=== PATIENT | female | born 1965 | race Caucasian/White ===

== ENCOUNTER 2016-11-12 19:03 | Emergency (ER) | payer SELFPAY ==
--- NOTE | 2016-11-12 22:02 | DIAGNOSTIC IMAGING REPORT ---
PROCEDURE: XR CHEST 2 VIEW INDICATION: SWOLLEN ARE TO L MID BACK AREA TECHNIQUE: PA and lateral views. COMPARISON: None. FINDINGS: Lungs are clear. Heart and mediastinum are normal. Moderate levoscoliosis of the thoracolumbar spine. IMPRESSION: 1. Moderate levoscoliosis of the thoracolumbar spine. 2. Otherwise negative chest.
--- NOTE | 2016-11-12 22:05 | DIAGNOSTIC IMAGING REPORT ---
PROCEDURE: XR THORACIC SPINE 3 VIEWS INDICATION: MID BACK PAIN TECHNIQUE: Three views. COMPARISON: None. FINDINGS: Moderate to severe levoscoliosis of the thoracolumbar spine (50 degrees, centered at L2). Osseous structures and disc spaces are otherwise normal. No evidence of an acute process or fracture. IMPRESSION: 1. Moderate to severe levoscoliosis of the thoracolumbar spine (50 degrees). 2. Otherwise negative thoracic spine.
--- NOTE | 2016-11-12 22:08 | DIAGNOSTIC IMAGING REPORT ---
PROCEDURE: XR LUMBAR SPINE 2 OR 3 VIEWS INDICATION: LOWER BACK PAIN TECHNIQUE: Three upright views. COMPARISON: None. FINDINGS: There is moderate to severe levoscoliosis of the thoracolumbar spine (40 degrees). changes of the thoracic No evidence of an acute process or fracture. IMPRESSION: 1. Moderate to severe levoscoliosis of the thoracolumbar spine (40 degrees in upright position). 2. Mild degenerate changes of the lumbar spine.
--- NOTE | 2016-11-12 22:22 | ED CLINICAL REPORT ---
Clinical Report - Physicians/Mid Levels [facility] [address] [place] [address] 11/12/2016 19:05 Patient: DOMINIC JASSO Time Seen: 19:15; upon arrival, initial patient contact, initial documentation, patient care assumed. Arrived- By private vehicle. Historian- patient and sister. HISTORY OF PRESENT ILLNESS Chief Complaint: VAGINAL BLEEDING. This started today and still present. It was abrupt in onset and has been constant. The symptoms are described as moderate. Modifying factors. Not worsened by anything. Not relieved by anything. The patient has had constant, crampy suprapubic pelvic pain, described as "pain". She has had moderate, constant lower back pain (says her back is crooked and started a few mos ago, denies any injury or trauma). She has had abnormal bleeding described as heavier than normal period. No abdominal pain, vaginal pain, flank pain, irregular periods or vaginal discharge. No vaginal itching, pain with urination, urinary frequency, urgency of urination or hematuria. She missed her last period. She has not had long-standing amenorrhea. She is not possibly . No history of recently irregular periods or chronically irregular periods. Not sexually active. Denies current . Similar symptoms previously: None. Recent medical care: Not recently seen/assessed. REVIEW OF SYSTEMS No nausea, vomiting, diarrhea, fever or difficulty breathing. No chest pain. All systems otherwise negative, except as recorded above. PAST HISTORY See nurses notes. ( PROBLEMS: Atypical Chest Pain. Substance Abuse. Abscess. --19:25 Annika Reyes R.N. ADDITIONAL SURGERIES: . --19:25 Annika Reyes RJake.). SOCIAL HISTORY Light tobacco smoker. History of heavy drug use: heroin. Recently used drugs today. No alcohol use. No recent travel. Is a local resident. FAMILY HISTORY Negative. ADDITIONAL NOTES The nursing notes have been reviewed with agreement regarding the chief complaint, HPI, ROS, PMH and patient medications and allergies. PHYSICAL EXAM Vital Signs: 11/12/2016 19:23 BP: 132/88. HR: 115. RR: 20. O2 saturation: 97%. Temp: 97.9 F. Pain level now: 10/02. Have been reviewed as abnormal and appear to be correct. Blood pressure normal. Tachycardic. Respiratory rate normal. Temperature normal. Oxygen saturation normal. Appearance: Alert. Oriented X3. No acute distress. HEENT: Normal external inspection. ENT: Pharynx normal. Neck: Neck supple. CVS: Tachycardia (ventricular rate = 110). Heart sounds abnormal. Respiratory: No respiratory distress. Breath sounds normal. Chest nontender. Abdomen: Soft and nontender. Bowel sounds normal. No organomegaly. No mass. Back: Normal external inspection. (curvature of spine noted that resembles sciolosis). : External inspection normal. Speculum exam abnormal. Moderate vaginal bleeding, consisting of bright red blood, via the cervical os. No vaginal discharge. Cervical os closed. No cervicitis. No herpes-like lesions. Bimanual exam normal. (vasc tech mehul george). Skin: Skin warm and dry. Normal skin color. No rash. Normal skin turgor. Extremities: Extremities nontender. No lower extremity edema. Neuro: Oriented X 3. Mood/affect normal. No motor deficit. No sensory deficit. LABS, X-RAYS, AND EKG X-Rays: T-Spine series. LS spine series negative. T-Spine X-rays: (IMPRESSION: 1. Moderate to severe levoscoliosis of the thoracolumbar spine (50 degrees). 2. Otherwise negative thoracic spine. Electronically Final signed by:Delvis Alonzo MD 11/12/2016 9:59:12 PM). The X-rays were interpreted by the radiologist and contemporaneously by me. Interpretation time: 22:14. LS-Spine X-rays: (IMPRESSION: 1. Moderate to severe levoscoliosis of the thoracolumbar spine (40 degrees in upright position). 2. Mild degenerate changes of the lumbar spine. Electronically Final signed by:Delvis Alonzo MD 11/12/2016 10:02:19 PM). The X-rays were interpreted by the radiologist and contemporaneously by me. Chest X-ray: Normal Chest X-Ray. (IMPRESSION: 1. Moderate levoscoliosis of the thoracolumbar spine. 2. Otherwise negative chest. Electronically Final signed by:Delvis Alonzo MD 11/12/2016 9:56:04 PM). The X-rays were interpreted by the radiologist and contemporaneously by me. Interpretation time: 22:02. Laboratory Tests: Serum Qualitative: (LILIAM: 11/12/2016 20:15) ( [facility] 11/12/2016 20:44) Final results Test Result Flag Units (Reference) , SERUM NEGATIVE CBC w Diff: (LILIAM: 11/12/2016 20:15) ( [facility] 11/12/2016 20:29) Final results Test Result Flag Units (Reference) WHITE BLOOD COUNT 5.1 K/uL (4.5-11.5) RED BLOOD COUNT 4.56 M/uL (4.00-5.20) HEMOGLOBIN 12.8 gm/dL (12.0-16.0) HEMATOCRIT 38.9 % (36.0-46.0) MEAN CELL VOLUME 85 fL (80-100) MEAN CORPUSCULAR HGB 28 pg (26-34) MEAN CORPUSCULAR HGB CONC 33 g/dL (31-37) RED CELL DISTRIBUTION WIDTH 18.4 H % (11.6-14.8) PLATELET COUNT 224 K/uL (150-400) NEUTROPHIL % 60.9 % (50-75) LYMPH % 25.3 % (25-40) MONO % 12.3 % (3-14) EOSINOPHIL % 1.1 % (0-4) BASOPHIL % 0.4 % (0-2) CMP: (LILIAM: 11/12/2016 20:15) ( [facility] 11/12/2016 20:40) Final results Test Result Flag Units (Reference) GLUCOSE 99 mg/dL (70-110) BUN 15 mg/dL (7-18) CREATININE 0.9 mg/dL (0.6-1.3) Estimated GFR >60 mL/min Estimated GFR- >60 mL/min Note: Persistent reduction over 3 months in eGFR<60 mL/min/1.73 m2 defines CKD. Patients with eGFR values>=60 mL/min/1.73 m2 may also have CKD if evidence ofpersistent proteinuria. Additional information may be foundat [email or web address].org. SODIUM 142 mmol/L (136-145) POTASSIUM 4.2 mmol/L (3.5-5.1) CHLORIDE 108 H mmol/L (98-107) CARBON DIOXIDE 28 mmol/L (21-32) CALCIUM 9.1 mg/dL (8.5-10.1) TOTAL PROTEIN 7.1 g/dL (6.4-8.2) ALBUMIN 3.6 g/dL (3.3-5.0) BILIRUBIN, TOTAL 0.2 mg/dL (0.0-1.0) ALKALINE PHOSPHATASE 95 U/L (46-116) AST (SGOT) 10 L U/L (15-37) ALT (SGPT) 13 U/L (12-78) . PROGRESS AND PROCEDURES Course of Care: pt aware of lab results. Patient and family counseled in person regarding the patient's stable condition, test results and diagnosis. 2215. Differential Diagnosis: I considered vaginitis, vaginal polyps, vaginal lesion, vaginal cancer, vulvar infection, ovarian cysts, polycystic disease of the ovaries, ovarian cancer, endometriosis, uterine fibroids, adenomyosis of the uterus, uterine polyps, uterine hyperplasia, uterine cancer, intrauterine , incomplete , endometritis and dysfunctional uterine bleeding as a possible cause of vaginal bleeding in this patient. This is a partial list of diagnoses considered. (premenopausal). Above considerations are based on history, physical exam, reassessment, laboratory data and X-Ray data. Differential diagnosis was discussed with patient. Disposition: Discharged home in good and improved condition (22:22). Condition: good and stable. CLINICAL IMPRESSION Primary dysmenorrhea (Scoliosis). INSTRUCTIONS Warnings: GENERAL WARNINGS: Return or contact your physician immediately if your condition worsens or changes unexpectedly, if not improving as expected, or if other problems arise. Specifically return if problem worsens. Prescription Medications: Diclofenac 50 mg tablets: Take 1 tablet orally every 8 hours as needed. Dispense thirty (30). No refills. Understanding of the discharge instructions verbalized by patient. Follow-up with: Bri Ch, [facility], , [address] [place] [address], [address], [place] [address]; Christos Pimentel MD, [facility], , [address], [place] [address]; Emilio Santos MD, [facility], , [facility], [address] [facility], [place] [address]; Wojciech Keith MD, [facility], , [facility], [address] [place] [address] [address] [address]; Napoleon Hunter MD, [facility], , [address], [place] [address]; [facility], , [address] [place] [address]; [facility], , [address] [place] [address], [address], [place] [address] Follow up in about two days even if well. Call for an appointment. Summary of care provided to patient. Follow-up with: Gary Stanton MD, Obstetrics/Gynecology, , [facility]'s [facility], [address] [place] [address] Follow up in about two days as needed. Call for an appointment. Summary of care provided to patient. (Electronically signed by Tess Pfeiffer A.R.N.P. 11/12/2016 22:46)
--- NOTE | 2016-11-12 22:22 | ED ORDER SUMMARY ---
..... Patient: DOMINIC JASSO OrderSheet [facility] VisitID: [id number] [place] [address] 51y, F Registration Date/Time: 11/12/2016 ORDER SHEET Weight: 69.3 kg (stated) Allergies: Codeine GENERAL ORDERS: CBC w Diff Urgent (19:35 11/12/2016 HBivens A.R.N.P.) (Ack 19:37 [facility]ager[facility] [employer] Manager) (20:16 DDean R.N.) CMP Urgent (19:35 11/12/2016 HBivens A.R.N.P.) (Ack 19:37 CH[facility] [employer] Manager) (20:16 DDean R.N.) Serum Qualitative Urgent (19:35 11/12/2016 HBivens A.R.N.P.) (Ack 19:37 [facility] [employer] Manager) (20:16 DDean R.N.) Pelvic Exam Setup (19:35 11/12/2016 HBivens A.R.N.P.) (19:50 DDean R.N.) Lumbar Spine 2 or 3V Urgent (19:49 11/12/2016 HBivens A.R.N.P.) (Ack 19:50 [facility] [employer] Manager) (20:43 James) Thoracic Spine 3V Urgent (19:49 11/12/2016 HBivens A.R.N.P.) (Ack 19:50 CH[facility] [employer] Manager) (20:43 James) Chest 2V Urgent (19:49 11/12/2016 HBivens A.R.N.P.) (Ack 19:50 CH[employer] [employer] Manager) (20:43 James) MEDICATION ORDERS: IV FLUIDS: ORDER SHEET NOTES: [Electronically signed by Tess Pfeiffer.R.N.P. (22:46 11/12/2016)] [Electronically signed by Annika Reyes R.N. (22:50 11/12/2016)] [Electronically locked/signed by Annika Reyes R.N. (22:50 11/12/2016)]
--- NOTE | 2016-11-12 22:22 | ED NURSING NOTES ---
Clinical Report - Nurses [facility] [address] [place] [address] 11/12/2016 19:05 Patient: DOMINIC JASSO TRIAGE Triage time 1925. Acuity: LEVEL 3. Chief Complaint: PELVIC PAIN and (in with heavy vag bleeding, also has back pain). --19:28 Annika Reyes R.N. 19:23 11/12/16. BP: 132/88. HR: 115. RR: 20. O2 saturation: 97%. Temp: 97.9 F. Pain level now: 10/02. --19:28 Annika Reyes R.N. Weight: 69.3 kg stated. Height/Length: 63 inches Per Patient. BMI: 27.1. --19:23 Annika Reyes R.N. Medications None. --19:24 Annika Reyes R.N. Allergies Codeine.(rash) --19:24 Annika Reyes R.N. History Arrived by private vehicle. Historian: patient. Accompanied by sister. No primary care physician. Onset. (2 days). She has had abdominal pain. ( skipped a period). SOCIAL HX: Light tobacco smoker (cigarette)- less than 1/2 a pack per day. History of drug use: heroin. No alcohol use. --19:28 Annika Reyes R.N. PROBLEMS: Atypical Chest Pain. Substance Abuse. Abscess. --19:25 Annika Reyes R.N. ADDITIONAL SURGERIES: . --19:25 Annika Reyes R.N. Interventions ID band on patient. To treatment room. --19:28 Annika Reyes R.N. PHYSICAL ASSESSMENT 19:29 11/12/16. Ambulatory to room. Patient gowned. GENERAL / NEURO / PSYCH: Alert. Oriented X 4. RESPIRATORY: Respirations not labored. CVS: Capillary refill less than 2 seconds. GI / : Vaginal bleeding present. SKIN: Skin is warm and dry. --19:29 Annika Reyes R.N. NURSING PROGRESS NOTES 19:25. Patient gowned. Head of bed elevated. Reassurance given. Patient identifiers checked. Call light placed in reach. Side rails up. Bed placed in lowest position. Patient ready for evaluation- chart flagged. --19:28 Annika Reyes R.N. 19:51 11/12/16. PELVIC EXAM: Pelvic exam performed by LAMP SHADE MAKER. Assisted by one nurse. Preparation: pelvic tray; patient placed in lithotomy position. Procedure: speculum and bimanual exam. Moderate amount of vaginal bleeding noted. Status post-procedure: she was stable. Total time of assist / procedure: 15 minutes. --19:51 Annika Reyes R.N. 20:05. Patient ID band checked for patient name and birthdate. Blood samples drawn by lab per protocol ; labeled in presence of the patient and sent to lab: [employer] set. --20:14 Annika Reyes R.N. 20:10. ( sister reported that pt "soaked thru 2 {shayy}pads in less than 15 min" new pads given to pt.). --20:15 Annika Reyes R.N. 20:15 11/12/16. Patient transported to radiology by stretcher with tech. --20:15 Annika Reyes R.N. correction to prior entry -20:10 staff asked to see vag pads, approx 1/3 of pad saturated, 2/3 dry. other pad only 20% involved. --20:36 Annika Reyes R.N. 20:30. Patient returned from radiology by stretcher with tech. --20:34 Annika Reyes R.N. 21:20 11/12/16. BP: 136/72. HR: 80. RR: 18. O2 saturation: 99%. Temp: deferred. Pain level now: 5/10. Additional comments: up to bathroom, steady on feet, pippa well . --22:50 Annika Reyes R.N. DISPOSITION / DISCHARGE 22:30. Condition at departure: improved and stable. No learning barriers present. Discharge instructions provided and reviewed with the patient and family. Reviewed medication(s) (diclofenec). Reviewed referrals (family practice referrals given). Patient and family verbalized understanding. Written instructions provided in [place]. The patient was discharged home and accompanied by family. She left the Emergency Department ambulatory and via private vehicle. Driving (sister). --22:44 Annika Reyes R.N. 22:30 11/12/16. BP: 130/78. HR: 78. RR: 18. O2 saturation: 99%. Temp: deferred. Pain level now: 09/01. --22:44 Annika Reyes R.N. Locked/Released at 11/12/2016 22:50 by Annika Reyes R.N.
--- NOTE | 2016-11-12 22:22 | ED CLINICAL REPORT ---
Clinical Report - Physicians/Mid Levels [facility] [address] [place] [address] 11/12/2016 19:05 Patient: DOMINIC JASSO Time Seen: 19:15; upon arrival, initial patient contact, initial documentation, patient care assumed. Arrived- By private vehicle. Historian- patient and sister. HISTORY OF PRESENT ILLNESS Chief Complaint: VAGINAL BLEEDING. This started today and still present. It was abrupt in onset and has been constant. The symptoms are described as moderate. Modifying factors. Not worsened by anything. Not relieved by anything. The patient has had constant, crampy suprapubic pelvic pain, described as "pain". She has had moderate, constant lower back pain (says her back is crooked and started a few mos ago, denies any injury or trauma). She has had abnormal bleeding described as heavier than normal period. No abdominal pain, vaginal pain, flank pain, irregular periods or vaginal discharge. No vaginal itching, pain with urination, urinary frequency, urgency of urination or hematuria. She missed her last period. She has not had long-standing amenorrhea. She is not possibly . No history of recently irregular periods or chronically irregular periods. Not sexually active. Denies current . Similar symptoms previously: None. Recent medical care: Not recently seen/assessed. REVIEW OF SYSTEMS No nausea, vomiting, diarrhea, fever or difficulty breathing. No chest pain. All systems otherwise negative, except as recorded above. PAST HISTORY See nurses notes. ( PROBLEMS: Atypical Chest Pain. Substance Abuse. Abscess. --19:25 Annika Reyes R.N. ADDITIONAL SURGERIES: . --19:25 Annika Reyes RJake.). SOCIAL HISTORY Light tobacco smoker. History of heavy drug use: heroin. Recently used drugs today. No alcohol use. No recent travel. Is a local resident. FAMILY HISTORY Negative. ADDITIONAL NOTES The nursing notes have been reviewed with agreement regarding the chief complaint, HPI, ROS, PMH and patient medications and allergies. PHYSICAL EXAM Vital Signs: 11/12/2016 19:23 BP: 132/88. HR: 115. RR: 20. O2 saturation: 97%. Temp: 97.9 F. Pain level now: 10/02. Have been reviewed as abnormal and appear to be correct. Blood pressure normal. Tachycardic. Respiratory rate normal. Temperature normal. Oxygen saturation normal. Appearance: Alert. Oriented X3. No acute distress. HEENT: Normal external inspection. ENT: Pharynx normal. Neck: Neck supple. CVS: Tachycardia (ventricular rate = 110). Heart sounds abnormal. Respiratory: No respiratory distress. Breath sounds normal. Chest nontender. Abdomen: Soft and nontender. Bowel sounds normal. No organomegaly. No mass. Back: Normal external inspection. (curvature of spine noted that resembles sciolosis). : External inspection normal. Speculum exam abnormal. Moderate vaginal bleeding, consisting of bright red blood, via the cervical os. No vaginal discharge. Cervical os closed. No cervicitis. No herpes-like lesions. Bimanual exam normal. (occupational health physician mehul george). Skin: Skin warm and dry. Normal skin color. No rash. Normal skin turgor. Extremities: Extremities nontender. No lower extremity edema. Neuro: Oriented X 3. Mood/affect normal. No motor deficit. No sensory deficit. LABS, X-RAYS, AND EKG X-Rays: T-Spine series. LS spine series negative. T-Spine X-rays: (IMPRESSION: 1. Moderate to severe levoscoliosis of the thoracolumbar spine (50 degrees). 2. Otherwise negative thoracic spine. Electronically Final signed by:Delvis Alonzo MD 11/12/2016 9:59:12 PM). The X-rays were interpreted by the radiologist and contemporaneously by me. Interpretation time: 22:14. LS-Spine X-rays: (IMPRESSION: 1. Moderate to severe levoscoliosis of the thoracolumbar spine (40 degrees in upright position). 2. Mild degenerate changes of the lumbar spine. Electronically Final signed by:Delvis Alonzo MD 11/12/2016 10:02:19 PM). The X-rays were interpreted by the radiologist and contemporaneously by me. Chest X-ray: Normal Chest X-Ray. (IMPRESSION: 1. Moderate levoscoliosis of the thoracolumbar spine. 2. Otherwise negative chest. Electronically Final signed by:Delvis Alonzo MD 11/12/2016 9:56:04 PM). The X-rays were interpreted by the radiologist and contemporaneously by me. Interpretation time: 22:02. Laboratory Tests: Serum Qualitative: (LILIAM: 11/12/2016 20:15) ( [facility] 11/12/2016 20:44) Final results Test Result Flag Units (Reference) , SERUM NEGATIVE CBC w Diff: (LILIAM: 11/12/2016 20:15) ( [facility] 11/12/2016 20:29) Final results Test Result Flag Units (Reference) WHITE BLOOD COUNT 5.1 K/uL (4.5-11.5) RED BLOOD COUNT 4.56 M/uL (4.00-5.20) HEMOGLOBIN 12.8 gm/dL (12.0-16.0) HEMATOCRIT 38.9 % (36.0-46.0) MEAN CELL VOLUME 85 fL (80-100) MEAN CORPUSCULAR HGB 28 pg (26-34) MEAN CORPUSCULAR HGB CONC 33 g/dL (31-37) RED CELL DISTRIBUTION WIDTH 18.4 H % (11.6-14.8) PLATELET COUNT 224 K/uL (150-400) NEUTROPHIL % 60.9 % (50-75) LYMPH % 25.3 % (25-40) MONO % 12.3 % (3-14) EOSINOPHIL % 1.1 % (0-4) BASOPHIL % 0.4 % (0-2) CMP: (LILIAM: 11/12/2016 20:15) ( [facility] 11/12/2016 20:40) Final results Test Result Flag Units (Reference) GLUCOSE 99 mg/dL (70-110) BUN 15 mg/dL (7-18) CREATININE 0.9 mg/dL (0.6-1.3) Estimated GFR >60 mL/min Estimated GFR- >60 mL/min Note: Persistent reduction over 3 months in eGFR<60 mL/min/1.73 m2 defines CKD. Patients with eGFR values>=60 mL/min/1.73 m2 may also have CKD if evidence ofpersistent proteinuria. Additional information may be foundat [email or web address]. SODIUM 142 mmol/L (136-145) POTASSIUM 4.2 mmol/L (3.5-5.1) CHLORIDE 108 H mmol/L (98-107) CARBON DIOXIDE 28 mmol/L (21-32) CALCIUM 9.1 mg/dL (8.5-10.1) TOTAL PROTEIN 7.1 g/dL (6.4-8.2) ALBUMIN 3.6 g/dL (3.3-5.0) BILIRUBIN, TOTAL 0.2 mg/dL (0.0-1.0) ALKALINE PHOSPHATASE 95 U/L (46-116) AST (SGOT) 10 L U/L (15-37) ALT (SGPT) 13 U/L (12-78) . PROGRESS AND PROCEDURES Course of Care: pt aware of lab results. Patient and family counseled in person regarding the patient's stable condition, test results and diagnosis. 2215. Differential Diagnosis: I considered vaginitis, vaginal polyps, vaginal lesion, vaginal cancer, vulvar infection, ovarian cysts, polycystic disease of the ovaries, ovarian cancer, endometriosis, uterine fibroids, adenomyosis of the uterus, uterine polyps, uterine hyperplasia, uterine cancer, intrauterine , incomplete , endometritis and dysfunctional uterine bleeding as a possible cause of vaginal bleeding in this patient. This is a partial list of diagnoses considered. (premenopausal). Above considerations are based on history, physical exam, reassessment, laboratory data and X-Ray data. Differential diagnosis was discussed with patient. Disposition: Discharged home in good and improved condition (22:22). Condition: good and stable. CLINICAL IMPRESSION Primary dysmenorrhea (Scoliosis). INSTRUCTIONS Warnings: GENERAL WARNINGS: Return or contact your physician immediately if your condition worsens or changes unexpectedly, if not improving as expected, or if other problems arise. Specifically return if problem worsens. Prescription Medications: Diclofenac 50 mg tablets: Take 1 tablet orally every 8 hours as needed. Dispense thirty (30). No refills. Understanding of the discharge instructions verbalized by patient. Follow-up with: Bri Ch, [facility], , [address] [place] [address], [address], [place] [address]; Christos Pimentel MD, [facility], , [address], [place] [address]; Emilio Santos MD, [facility], , [facility], [address] [facility], [place] [address]; Wojciech Keith MD, [facility], , [facility], [address] [place] [address] [address] [address]; Napoleon Hunter MD, [facility], , [address], [place] [address]; [facility], , [address] [place] [address]; [facility], , [address] [place] [address], [address], [place] [address] Follow up in about two days even if well. Call for an appointment. Summary of care provided to patient. Follow-up with: Gary Stanton MD, Obstetrics/Gynecology, , [facility]'s [facility], [address] [place] [address] Follow up in about two days as needed. Call for an appointment. Summary of care provided to patient. (Electronically signed by Tess Pfeiffer A.R.N.P. 11/12/2016 22:46)
--- NOTE | 2016-11-12 22:22 | ED ORDER SUMMARY ---
..... Patient: DOMINIC JASSO OrderSheet [facility] VisitID: [id number] [place] [address] 51y, F Registration Date/Time: 11/12/2016 ORDER SHEET Weight: 69.3 kg (stated) Allergies: Codeine GENERAL ORDERS: CBC w Diff Urgent (19:35 11/12/2016 HBivens A.R.N.P.) (Ack 19:37 CHagerty ER Copywriter) (20:16 DDean R.N.) CMP Urgent (19:35 11/12/2016 HBivens A.R.N.P.) (Ack 19:37 CHagerty ER Copywriter) (20:16 DDean R.N.) Serum Qualitative Urgent (19:35 11/12/2016 HBivens A.R.N.P.) (Ack 19:37 CHagerty ER Copywriter) (20:16 DDean R.N.) Pelvic Exam Setup (19:35 11/12/2016 HBivens A.R.N.P.) (19:50 DDean R.N.) Lumbar Spine 2 or 3V Urgent (19:49 11/12/2016 HBivens A.R.N.P.) (Ack 19:50 CHagerty ER Copywriter) (20:43 James) Thoracic Spine 3V Urgent (19:49 11/12/2016 HBivens A.R.N.P.) (Ack 19:50 CHagerty ER Copywriter) (20:43 James) Chest 2V Urgent (19:49 11/12/2016 HBivens A.R.N.P.) (Ack 19:50 CHagerty ER Copywriter) (20:43 James) MEDICATION ORDERS: IV FLUIDS: ORDER SHEET NOTES: [Electronically signed by Tess Pfeiffer.R.N.P. (22:46 11/12/2016)] [Electronically signed by Annika Reyes R.N. (22:50 11/12/2016)] [Electronically locked/signed by Annika Reyes R.N. (22:50 11/12/2016)]
--- NOTE | 2016-11-12 22:22 | ED NURSING NOTES ---
Clinical Report - Nurses [facility] [address] [place] [address] 11/12/2016 19:05 Patient: DOMINIC JASSO TRIAGE Triage time 1925. Acuity: LEVEL 3. Chief Complaint: PELVIC PAIN and (in with heavy vag bleeding, also has back pain). --19:28 Annika Reyes R.N. 19:23 11/12/16. BP: 132/88. HR: 115. RR: 20. O2 saturation: 97%. Temp: 97.9 F. Pain level now: 10/02. --19:28 Annika Reyes R.N. Weight: 69.3 kg stated. Height/Length: 63 inches Per Patient. BMI: 27.1. --19:23 Annika Reyes R.N. Medications None. --19:24 Annika Reyes R.N. Allergies Codeine.(rash) --19:24 Annika Reyes R.N. History Arrived by private vehicle. Historian: patient. Accompanied by sister. No primary care physician. Onset. (2 days). She has had abdominal pain. ( skipped a period). SOCIAL HX: Light tobacco smoker (cigarette)- less than 1/2 a pack per day. History of drug use: heroin. No alcohol use. --19:28 Annika Reyes R.N. PROBLEMS: Atypical Chest Pain. Substance Abuse. Abscess. --19:25 Annika Reyes R.N. ADDITIONAL SURGERIES: . --19:25 Annika Reyes R.N. Interventions ID band on patient. To treatment room. --19:28 Annika Reyes R.N. PHYSICAL ASSESSMENT 19:29 11/12/16. Ambulatory to room. Patient gowned. GENERAL / NEURO / PSYCH: Alert. Oriented X 4. RESPIRATORY: Respirations not labored. CVS: Capillary refill less than 2 seconds. GI / : Vaginal bleeding present. SKIN: Skin is warm and dry. --19:29 Annika Reyes R.N. NURSING PROGRESS NOTES 19:25. Patient gowned. Head of bed elevated. Reassurance given. Patient identifiers checked. Call light placed in reach. Side rails up. Bed placed in lowest position. Patient ready for evaluation- chart flagged. --19:28 Annika Reyes R.N. 19:51 11/12/16. PELVIC EXAM: Pelvic exam performed by [facility] FACILITATOR. Assisted by one nurse. Preparation: pelvic tray; patient placed in lithotomy position. Procedure: speculum and bimanual exam. Moderate amount of vaginal bleeding noted. Status post-procedure: she was stable. Total time of assist / procedure: 15 minutes. --19:51 Annika Reyes R.N. 20:05. Patient ID band checked for patient name and birthdate. Blood samples drawn by lab per protocol ; labeled in presence of the patient and sent to lab: [employer] set. --20:14 Annika Reyes R.N. 20:10. ( sister reported that pt "soaked thru 2 {shayy}pads in less than 15 min" new pads given to pt.). --20:15 Annika Reyes R.N. 20:15 11/12/16. Patient transported to radiology by stretcher with tech. --20:15 Annika Reyes R.N. correction to prior entry -20:10 staff asked to see vag pads, approx 1/3 of pad saturated, 2/3 dry. other pad only 20% involved. --20:36 Annika Reyes R.N. 20:30. Patient returned from radiology by stretcher with tech. --20:34 Annika Reyes R.N. 21:20 11/12/16. BP: 136/72. HR: 80. RR: 18. O2 saturation: 99%. Temp: deferred. Pain level now: 5/10. Additional comments: up to bathroom, steady on feet, pippa well . --22:50 Annika Reyes R.N. DISPOSITION / DISCHARGE 22:30. Condition at departure: improved and stable. No learning barriers present. Discharge instructions provided and reviewed with the patient and family. Reviewed medication(s) (diclofenec). Reviewed referrals (family practice referrals given). Patient and family verbalized understanding. Written instructions provided in Ukrainian. The patient was discharged home and accompanied by family. She left the Emergency Department ambulatory and via private vehicle. Driving (sister). --22:44 Annika Reyes R.N. 22:30 11/12/16. BP: 130/78. HR: 78. RR: 18. O2 saturation: 99%. Temp: deferred. Pain level now: 09/01. --22:44 Annika Reyes R.N. Locked/Released at 11/12/2016 22:50 by Annika Reyes R.N.
--- NOTE | 2016-11-12 22:51 | ED MAR SUMMARY ---
..... Medication Administration Record [facility] [address] [place], [place] [id number] Patient: DOMINIC JASSO Visit ID: [id number] 51y, F Weight: 69.3 kg Height/Length: 63 in BMI: 27.1 ALLERGIES: Codeine
--- NOTE | 2016-11-12 22:51 | ED DISCHARGE INSTRUCTIONS ---
Patient: DOMINIC JASSO General Instructions [facility] VisitID: [id number] [place] [address] 51y, F Registration Date/Time: 11/12/2016 Primary dysmenorrhea (Scoliosis). INSTRUCTIONS Warnings: GENERAL WARNINGS: Return or contact your physician immediately if your condition worsens or changes unexpectedly, if not improving as expected, or if other problems arise. Specifically return if problem worsens. Prescription Medications: Diclofenac 50 mg tablets: Take 1 tablet orally every 8 hours as needed. Dispense thirty (30). No refills. Understanding of the discharge instructions verbalized by patient. Follow-up with: Bri Ch, [facility], , [address] [place] [address], [address], [place] [address]; Christos Pimentel MD, [facility], , [address] [place] [address]; Emilio Santos MD, [facility], , [facility], [facility] [place] [address]; Wojciech Keith MD, [facility], , [facility], [address] [place] [address]; Napoleon Hunter MD, [facility], , [address] [address]; [facility], [facility], , [address] [place] [address]; [facility], [facility], , [address] [place] [address], [address], [place] [address] Follow up in about two days even if well. Call for an appointment. Summary of care provided to patient. Follow-up with: Gary Stanton MD, Obstetrics/Gynecology, , [facility], [address] [place] [address] Follow up in about two days as needed. Call for an appointment. Summary of care provided to patient. ADDITIONAL INFORMATION Painful Menstrual Periods The uterus is a muscle and contracts normally during the menstrual cycle. The contraction pushes out the build-up of tissue that occurs each month inside the uterus. If the contraction is very strong, it can cause pain because the muscle is not getting enough oxygen for the amount of work it is doing. Pain with menstruation is called dysmenorrhea. The pain may feel like a dull ache or throbbing in the lower abdomen. It may spread to your lower back or inner thighs. In severe cases there may also be nausea, vomiting, loose stools, sweating or dizziness. There are two types of dysmenorrhea: Primary Dysmenorrhea (common menstrual cramps) usually appears within one or two years after you start your periods. It usually gets better or goes away as you get older or when you have a baby. The menstrual cramps usually start just before, or on the day of your period, and last 1-3 days. Treatment is with comfort measures and anti-inflammatory drugs as described below (see Home Care). If your pain is not controlled with these measures, your doctor may prescribe control pills. This will reduce the pain of each period. Secondary Dysmenorrhea starts later in life. The pain begins earlier in the menstrual cycle and lasts longer than common menstrual cramps. It is caused by a specific problem with the pelvic organs, such as: PID (pelvic inflammatory disease) -- an infection in the fallopian tubes Fibroids benign tumors within the wall of the uterus (not cancer) Endometriosis the tissue that lines the uterus spreads outside the uterus and grows there. This tissue swells and bleeds each month, just like the tissue in your uterus, and causes pain. IUD use -- especially in the first few months after placement Once the cause of secondary dysmenorrhea is found, it can be treated. Home Care: Most women with common menstrual cramping (primary dysmenorrhea) can remain active throughout their period. Many women find that regular exercise each werek reduces menstrual pain. If cramping is severe, rest in bed with a heating pad on the lower abdomen or lower back. A hot bath or massage to the lower back and abdomen may also give relief. Smoking can make symptoms worse. If you smoke, ask your doctor for help with a stop-smoking plan. Avoid caffeine and alcohol around the time of your period since these can make symptoms worse. Anti-inflammatory medicine such as aspirin, ibuprofen (Advil, Motrin) or naproxen (Aleve, Naprosyn) can be very helpful, especially if taken at the very first signs of bleeding or cramping . Acetaminophen (Tylenol) is not as effective for this problem. [NOTE: If you have chronic liver or kidney disease or ever had a stomach ulcer or GI bleeding, talk with your doctor before using these medicines.] If your pain is not controlled by the above measures, a prescription pain medicine may be required for a short time. Discuss this with your doctor. Follow Up with your doctor as advised. If you have just started menstruating in the past 1-2 years, and your pain is mild to moderate, your symptoms are most likely not a cause for concern. However, if menstrual cramps are severe enough to interfere with your daily activities, last longer than a few days, or if you are older and just started having menstrual pain, it is important to see your doctor for further evaluation. Get Prompt Medical Attention if any of the following occur: Fever over 100.4F (38.0C) with pelvic pain Uncontrolled menstrual pain or pain that lasts longer than usual or occurs between periods Unusual vaginal discharge between periods Heavy vaginal bleeding (soaking more than one pad an hour for three hours) Passage of pink or rodríguez tissue from the vagina If you use tampons, watch for the following signs of Toxic Shock Syndrome and return at once: Fever over 102.0F (38.9C), with or without pelvic pain Vomiting, diarrhea Dizziness, weakness or fainting Rash that looks like a bad sunburn You have been given the following additional information: Dysmenorrhea (Electronically signed by Tess Pfefifer A.R.NJose MariaPJose Maria 11/12/2016 22:46)
--- NOTE | 2016-11-12 22:51 | ED MED RECONCILIATION SUMMARY ---
Patient: DOMINIC JASSO Medication Reconciliation Report [facility] VisitID: [id number] [address] [place] [address] 51y, F Registration Date/Time: 11/12/2016 Weight: 69.3 kg Height/Length: 63 in. BMI: 27.1 ALLERGIES: Codeine The patient's Home Medications are listed below: NONE. The source(s) of the original Home Medication information: Not obtained. The following Medications were given to the patient in the Emergency Department: None. The following Medications were prescribed to the patient: Diclofenac 50 mg tablets: Take 1 tablet orally every 8 hours as needed. Dispense thirty (30). No refills. -- Tess Pfeiffer A.R.N.P.
--- NOTE | 2016-11-12 22:51 | ED MAR SUMMARY ---
..... Medication Administration Record [facility] [address], [place] [id number] Patient: DOMINIC JASSO Visit ID: [id number] 51y, F Weight: 69.3 kg Height/Length: 63 in BMI: 27.1 ALLERGIES: Codeine
--- NOTE | 2016-11-12 22:51 | ED DISCHARGE INSTRUCTIONS ---
Patient: DOMINIC JASSO General Instructions [facility] VisitID: [id number] [place] [address] 51y, F Registration Date/Time: 11/12/2016 Primary dysmenorrhea (Scoliosis). INSTRUCTIONS Warnings: GENERAL WARNINGS: Return or contact your physician immediately if your condition worsens or changes unexpectedly, if not improving as expected, or if other problems arise. Specifically return if problem worsens. Prescription Medications: Diclofenac 50 mg tablets: Take 1 tablet orally every 8 hours as needed. Dispense thirty (30). No refills. Understanding of the discharge instructions verbalized by patient. Follow-up with: Bri Ch, [facility], , [address] [place] [address], [address], [place] [address]; Christos Pimentel MD, [facility], , [address] [place] [address]; Emilio Santos MD, [facility], , [facility], [facility] [place] [address]; Wojciech Keith MD, [facility], , [facility], [address] [place] [address]; Napoleon Hunter MD, [facility], , [address] [address]; [facility], [facility], , [address] [place] [address]; [facility], [facility], , [address] [place] [address], [address], [place] [address] Follow up in about two days even if well. Call for an appointment. Summary of care provided to patient. Follow-up with: Gary Stanton MD, Obstetrics/Gynecology, , [facility], [address] [place] [address] Follow up in about two days as needed. Call for an appointment. Summary of care provided to patient. ADDITIONAL INFORMATION Painful Menstrual Periods The uterus is a muscle and contracts normally during the menstrual cycle. The contraction pushes out the build-up of tissue that occurs each month inside the uterus. If the contraction is very strong, it can cause pain because the muscle is not getting enough oxygen for the amount of work it is doing. Pain with menstruation is called dysmenorrhea. The pain may feel like a dull ache or throbbing in the lower abdomen. It may spread to your lower back or inner thighs. In severe cases there may also be nausea, vomiting, loose stools, sweating or dizziness. There are two types of dysmenorrhea: Primary Dysmenorrhea (common menstrual cramps) usually appears within one or two years after you start your periods. It usually gets better or goes away as you get older or when you have a baby. The menstrual cramps usually start just before, or on the day of your period, and last 1-3 days. Treatment is with comfort measures and anti-inflammatory drugs as described below (see Home Care). If your pain is not controlled with these measures, your doctor may prescribe control pills. This will reduce the pain of each period. Secondary Dysmenorrhea starts later in life. The pain begins earlier in the menstrual cycle and lasts longer than common menstrual cramps. It is caused by a specific problem with the pelvic organs, such as: PID (pelvic inflammatory disease) -- an infection in the fallopian tubes Fibroids benign tumors within the wall of the uterus (not cancer) Endometriosis the tissue that lines the uterus spreads outside the uterus and grows there. This tissue swells and bleeds each month, just like the tissue in your uterus, and causes pain. IUD use -- especially in the first few months after placement Once the cause of secondary dysmenorrhea is found, it can be treated. Home Care: Most women with common menstrual cramping (primary dysmenorrhea) can remain active throughout their period. Many women find that regular exercise each werek reduces menstrual pain. If cramping is severe, rest in bed with a heating pad on the lower abdomen or lower back. A hot bath or massage to the lower back and abdomen may also give relief. Smoking can make symptoms worse. If you smoke, ask your doctor for help with a stop-smoking plan. Avoid caffeine and alcohol around the time of your period since these can make symptoms worse. Anti-inflammatory medicine such as aspirin, ibuprofen (Advil, Motrin) or naproxen (Aleve, Naprosyn) can be very helpful, especially if taken at the very first signs of bleeding or cramping . Acetaminophen (Tylenol) is not as effective for this problem. [NOTE: If you have chronic liver or kidney disease or ever had a stomach ulcer or GI bleeding, talk with your doctor before using these medicines.] If your pain is not controlled by the above measures, a prescription pain medicine may be required for a short time. Discuss this with your doctor. Follow Up with your doctor as advised. If you have just started menstruating in the past 1-2 years, and your pain is mild to moderate, your symptoms are most likely not a cause for concern. However, if menstrual cramps are severe enough to interfere with your daily activities, last longer than a few days, or if you are older and just started having menstrual pain, it is important to see your doctor for further evaluation. Get Prompt Medical Attention if any of the following occur: Fever over 100.4F (38.0C) with pelvic pain Uncontrolled menstrual pain or pain that lasts longer than usual or occurs between periods Unusual vaginal discharge between periods Heavy vaginal bleeding (soaking more than one pad an hour for three hours) Passage of pink or rodríguez tissue from the vagina If you use tampons, watch for the following signs of Toxic Shock Syndrome and return at once: Fever over 102.0F (38.9C), with or without pelvic pain Vomiting, diarrhea Dizziness, weakness or fainting Rash that looks like a bad sunburn You have been given the following additional information: Dysmenorrhea (Electronically signed by Tess Pfeiffer A.R.NJose MariaPJose Maria 11/12/2016 22:46)
--- NOTE | 2016-11-12 22:51 | ED MED RECONCILIATION SUMMARY ---
Patient: DOMINIC JASSO Medication Reconciliation Report [facility] VisitID: [id number] [address] [place] [address] 51y, F Registration Date/Time: 11/12/2016 Weight: 69.3 kg Height/Length: 63 in. BMI: 27.1 ALLERGIES: Codeine The patient's Home Medications are listed below: NONE. The source(s) of the original Home Medication information: Not obtained. The following Medications were given to the patient in the Emergency Department: None. The following Medications were prescribed to the patient: Diclofenac 50 mg tablets: Take 1 tablet orally every 8 hours as needed. Dispense thirty (30). No refills. -- Tess Pfeiffer A.R.N.P.
== END 2016-11-12 22:30 | disposition home or self-care (01) ==
LOC: ED SRH 19:03
DX: N94.4 Primary dysmenorrhea (principal); M41.9 Scoliosis, unspecified; F17.210 Nicotine dependence, cigarettes, uncomplicated; Z88.5 Allergy status to narcotic agent
CPT/HCPCS: 90074; 90100; 95059; 98428